=== PATIENT | female | born 1945 | race Caucasian/White ===

== ENCOUNTER 2018-08-05 06:39 | Inpatient (IN) | payer OTHER ==
[2018-08-05] MEDS: CEFAZOLIN 2 GM/50 ML (PMX) 50 ML (FOR WT < 120 KG) IVPB ×2 (07:00→13:35)
[2018-08-05] MEDS ORDERED: ACETAMINOPHEN 500 MG TAB PO (07:00)
[2018-08-05] MEDS: DEXAMETHASONE 4 MG/ML 1 ML INJ IV (09:05)
[2018-08-05] MEDS: LACTATED RINGER'S 1,000 ML IV ×3 (09:05→20:53)
[2018-08-05 09:19] LABS: ADD MAN DIFF? NO
[2018-08-05 09:20] LABS: BASOPHIL # 0.1 10^3/ul (0.0-0.1); BASOPHILS % 0.7 % (0.0-2.0); EOSINOPHILS # 0.1 10^3/ul (0.0-0.5); HEMOGLOBIN 12.8 g/dl (12.0-16.0); LYMPHOCYTES # 2.9 10^3/ul (0.8-2.9); LYMPHOCYTES % 41.5 % (15.0-51.0); MEAN CORPUSCULAR VOLUME 84.4 fl (82.0-101.0); MEAN PLATELET VOLUME 10.7 fl (7.4-10.4); MONOCYTE # 0.6 10^3/ul (0.3-0.9); MONOCYTES % 8.1 % (0.0-11.0); NEUTROPHIL # 3.4 10^3/ul (1.6-7.5); NEUTROPHILS % 47.6 % (39.0-77.0); PLATELET COUNT 225 10^3/UL (140-415); RED BLOOD COUNT 4.74 10^6/ul (4.20-5.40); RED CELL DISTRIBUTION WIDTH 13.3 % (11.5-14.5)
[2018-08-05] MEDS ORDERED: ACETAMINOPHEN 1000MG/100ML IV 100 ML IVPB (09:30)
[2018-08-05] MEDS ORDERED: TRANEXAMIC ACID 1 GM/100 ML (PMX) (09:30)
[2018-08-05] MEDS ORDERED: GLYCOPYRROLATE 0.4 MG INJ (09:31)
[2018-08-05] MEDS ORDERED: ROCURONIUM 50 MG INJ (09:31)
[2018-08-05] MEDS ORDERED: CEFAZOLIN 1 GM INJ (09:32)
[2018-08-05] MEDS ORDERED: ONDANSETRON 4 MG INJ (09:32)
[2018-08-05] MEDS ORDERED: NEOSTIGMINE 3 MG/3 ML SYRINGE (09:32)
[2018-08-05] MEDS ORDERED: DEXAMETHASONE 4 MG/ML 5 ML INJ (09:32)
[2018-08-05] MEDS ORDERED: FENTAnyl 50 MCG/ML VIAL (09:32)
[2018-08-05] MEDS ORDERED: PROPOFOL 20 ML (09:32)
[2018-08-05] MEDS ORDERED: MIDAZOLAM 1 MG/ML 2 ML INJ (09:32)
[2018-08-05] MEDS ORDERED: morphine SULFATE/PF (10 MG/10 ML) INJ (09:34)
[2018-08-05 09:47] LABS: INR 0.94; PROTIME 12.7 Sec (11.9-14.9)
[2018-08-05 09:49] LABS: ALANINE AMINOTRANSFERASE 28 IU/L (13-69); ALBUMIN 4.1 g/dl (3.3-4.9); ALBUMIN/GLOBULIN RATIO 1.32; ALKALINE PHOSPHATASE 158 IU/L (42-121); ANION GAP 10 (5-13); ASPARTATE AMINO TRANSFERASE 33 IU/L (15-46); BILIRUBIN,INDIRECT 0.5 mg/dl (0-1.1); BILIRUBIN,TOTAL 0.5 mg/dl (0.2-1.3); BLOOD UREA NITROGEN 15 mg/dl (7-20); CALCIUM 9.4 mg/dl (8.4-10.2); CARBON DIOXIDE 31 mmol/L (21-31); CHLORIDE 105 mmol/L (97-110); CREATININE 0.75 mg/dl (0.44-1.00); GLUCOSE 106 mg/dl (70-220); POTASSIUM 3.9 mmol/L (3.5-5.1); TOTAL PROTEIN 7.2 g/dl (6.1-8.1)
[2018-08-05] MEDS ORDERED: ALBUTEROL 0.083% (NEB) 2.5 MG/3 ML AMP HHN (10:00)
[2018-08-05] MEDS ORDERED: EPHEDrine 25 MG/5 ML SYG IV (10:00)
[2018-08-05] MEDS ORDERED: FENTAnyl 50 MCG/ML VIAL IV ×3 (10:00)
[2018-08-05] MEDS ORDERED: LABETALOL HCL 20MG INJ IV (10:00)
[2018-08-05] MEDS ORDERED: NALBUPHINE HCL (10 MG/1 ML) INJ IV (10:00)
[2018-08-05] MEDS ORDERED: ONDANSETRON 4 MG INJ IV ×2 (10:00)
[2018-08-05] MEDS ORDERED: IPRATROPIUM (NEB) 0.5 MG/2.5 ML AMP HHN (10:00)
[2018-08-05] MEDS ORDERED: HYDROmorphONE 0.5 MG/0.5 ML SYG IV ×2 (10:00)
[2018-08-05] MEDS ORDERED: DIPHENHYDRAMINE 50 MG INJ IV ×2 (10:00)
[2018-08-05] MEDS ORDERED: hydrALAzine 20 MG INJ IV ×2 (10:00→14:30)
[2018-08-05] MEDS ORDERED: MIDAZOLAM 1 MG/ML 2 ML INJ IV (10:00)
[2018-08-05] MEDS ORDERED: TRIMETHOBENZAMIDE 100 MG/ML VIAL IM (10:00)
[2018-08-05] MEDS ORDERED: HYDROmorphONE 1 MG/5 ML IV SYRINGE IV ×3 (10:00)
[2018-08-05] MEDS ORDERED: ZOLPIDEM 5 MG TAB PO (10:00)
[2018-08-05] MEDS ORDERED: MEPERIDINE 25 MG INJ IV (10:00)
[2018-08-05] MEDS ORDERED: NALOXONE (0.4 MG/ML) INJ IV ×2 (10:00→12:00)
[2018-08-05 10:01] LABS: SODIUM 146 mmol/L (135-144)
[2018-08-05] MEDS: TRANEXAMIC ACID 1GM/100ML(PMX) 100 ML AT INCISION X1 IVPB (10:07)
[2018-08-05] MEDS: POLYMYXIN B 500000 UNIT INJ (10:24)
[2018-08-05] MEDS: BACITRACIN 50000 UNITS INJ (10:24)
[2018-08-05 10:32] LABS: PARTIAL THROMBOPLASTIN TIME 38.3 Sec (23.0-35.0)
[2018-08-05] MEDS: TRANEXAMIC ACID 1GM/100ML(PMX) 100 ML AT CLOSURE X1 IVPB (11:39)
[2018-08-05] MEDS ORDERED: MAGNESIUM HYDROXIDE 30ML CUP PO (12:00)
[2018-08-05] MEDS ORDERED: NACL 0.9% 3 ML SYG IV (12:00)
[2018-08-05] MEDS ORDERED: ROPIVACAINE 0.5 % 30 ML VIAL (12:05)
[2018-08-05] MEDS ORDERED: SUGAMMADEX SODIUM 200 MG/2 ML VIAL IV (12:23)
[2018-08-05] MEDS: GABAPENTIN 100 MG CAP PO ×2 (13:00→20:09)
[2018-08-05] MEDS: CEFAZOLIN 2 GM/50 ML (PMX) 50 ML IVPB (13:30)
[2018-08-05 16:23] LABS: ADD UMIC NO; UR ASCORBIC ACID NEGATIVE (NEGATIVE); UR BILIRUBIN (Dip) NEGATIVE (NEGATIVE); UR BLOOD (Dip) NEGATIVE (NEGATIVE); UR CLARITY CLEAR (CLEAR); UR COLOR STRAW (YELLOW); UR GLUCOSE (Dip) NEGATIVE (NEGATIVE); UR KETONES (Dip) NEGATIVE (NEGATIVE); UR LEUKOCYTE ESTERASE (Dip) NEGATIVE Leu/ul (NEGATIVE); UR NITRITE (Dip) NEGATIVE (NEGATIVE); UR SPECIFIC GRAVITY (Dip) 1.011 (1.003-1.030); UR TOTAL PROTEIN (Dip) NEGATIVE (NEGATIVE); UR UROBILINOGEN (Dip) NEGATIVE (NEGATIVE)
[2018-08-06] MEDS: CEFAZOLIN 2 GM/50 ML (PMX) 50 ML IVPB ×2 (02:37→10:46)
[2018-08-06 05:21] LABS: ADD MAN DIFF? NO
[2018-08-06 05:31] LABS: WHITE BLOOD COUNT 11.8 10^3/ul (4.8-10.8)
[2018-08-06 05:31] LABS: BASOPHILS % 0.1 % (0.0-2.0); HEMATOCRIT 30.7 % (37.0-47.0); LYMPHOCYTES # 1.2 10^3/ul (0.8-2.9); LYMPHOCYTES % 9.8 % (15.0-51.0); MEAN CORPUSCULAR HEMOGLOBIN 26.5 pg (29.0-33.0); MEAN CORPUSCULAR HGB CONC 32.6 g/dl (32.0-37.0); MEAN CORPUSCULAR VOLUME 81.4 fl (82.0-101.0); NEUTROPHIL # 9.7 10^3/ul (1.6-7.5); NEUTROPHILS % 81.7 % (39.0-77.0); PLATELET COUNT 208 10^3/UL (140-415); RED BLOOD COUNT 3.77 10^6/ul (4.20-5.40); RED CELL DISTRIBUTION WIDTH 13.4 % (11.5-14.5)
[2018-08-06 05:51] LABS: CHOLESTEROL 120 mg/dl (100-200)
[2018-08-06 05:51] LABS: CHOL/HDL RATIO 2.8 RATIO; HDL CHOLESTEROL 42 mg/dl (33-92); LDL CHOLESTEROL,CALCULATED 61 mg/dl; TRIGLYCERIDES 83 mg/dl (0-149)
[2018-08-06 06:24] LABS: ANION GAP 7 (5-13); BLOOD UREA NITROGEN 15 mg/dl (7-20); CALCIUM 8.5 mg/dl (8.4-10.2); CARBON DIOXIDE 27 mmol/L (21-31); CHLORIDE 106 mmol/L (97-110); CREATININE 0.63 mg/dl (0.44-1.00); GLUCOSE 141 mg/dl (70-220); SODIUM 140 mmol/L (135-144)
[2018-08-06 06:27] LABS: POTASSIUM 3.9 mmol/L (3.5-5.1)
[2018-08-06 06:50] LABS: HEMOGLOBIN A1C 5.5 % (0-5.9)
[2018-08-06] MEDS: LACTATED RINGER'S 1,000 ML IV ×2 (07:00→12:49)
[2018-08-06] MEDS: GABAPENTIN 100 MG CAP PO ×3 (09:06→20:22)
[2018-08-06] MEDS: CELECOXIB 100 MG CAP PO ×2 (09:06→20:22)
[2018-08-06] MEDS: ASPIRIN (EC) 81 MG TAB PO ×2 (09:07→20:22)
[2018-08-06] MEDS: DOCUSATE SODIUM 100 MG CAP PO ×2 (09:07→20:22)
[2018-08-06] MEDS: KETOROLAC 15 MG INJ IV ×2 (11:40→20:28)
[2018-08-06] MEDS ORDERED: ONDANSETRON 4 MG INJ IV (12:00)
[2018-08-07] MEDS: oxyCODONE 5 MG TAB PO ×3 (00:50→13:53)
[2018-08-07] MEDS: LACTATED RINGER'S 1,000 ML IV ×2 (01:19→07:00)
[2018-08-07 04:50] LABS: ADD MAN DIFF? NO
[2018-08-07 05:00] LABS: BASOPHILS % 0.2 % (0.0-2.0); EOSINOPHILS # 0.1 10^3/ul (0.0-0.5); EOSINOPHILS % 0.7 % (0.0-7.0); HEMATOCRIT 27.8 % (37.0-47.0); HEMOGLOBIN 8.9 g/dl (12.0-16.0); LYMPHOCYTES # 3.7 10^3/ul (0.8-2.9); LYMPHOCYTES % 40.7 % (15.0-51.0); MEAN CORPUSCULAR HEMOGLOBIN 26.6 pg (29.0-33.0); MEAN CORPUSCULAR VOLUME 83.2 fl (82.0-101.0); MEAN PLATELET VOLUME 10.9 fl (7.4-10.4); MONOCYTE # 0.9 10^3/ul (0.3-0.9); MONOCYTES % 9.8 % (0.0-11.0); NEUTROPHIL # 4.4 10^3/ul (1.6-7.5); NEUTROPHILS % 48.4 % (39.0-77.0); PLATELET COUNT 175 10^3/UL (140-415); RED BLOOD COUNT 3.34 10^6/ul (4.20-5.40); RED CELL DISTRIBUTION WIDTH 13.6 % (11.5-14.5)
[2018-08-07 05:00] LABS: WHITE BLOOD COUNT 9.1 10^3/ul (4.8-10.8)
[2018-08-07 05:39] LABS: ANION GAP 6 (5-13); BLOOD UREA NITROGEN 19 mg/dl (7-20); CALCIUM 8.6 mg/dl (8.4-10.2); CARBON DIOXIDE 31 mmol/L (21-31); CHLORIDE 106 mmol/L (97-110); CREATININE 0.77 mg/dl (0.44-1.00); GLUCOSE 120 mg/dl (70-220); POTASSIUM 3.9 mmol/L (3.5-5.1); SODIUM 143 mmol/L (135-144)
[2018-08-07] MEDS: PANTOPRAZOLE (EC) 40 MG TAB PO (06:15)
[2018-08-07] MEDS: KETOROLAC 15 MG INJ IV (06:19)
[2018-08-07] MEDS: CELECOXIB 100 MG CAP PO (08:42)
[2018-08-07] MEDS: GABAPENTIN 100 MG CAP PO ×2 (08:42→13:53)
[2018-08-07] MEDS: DOCUSATE SODIUM 100 MG CAP PO (08:42)
[2018-08-07] MEDS: ASPIRIN (EC) 81 MG TAB PO (08:42)
== END 2018-08-07 16:20 | disposition home health service (06) | DRG 468 ==
LOC: REC 06:39 → MS1 14:26
PROC: 0SPC0JZ Removal of Synthetic Substitute from Right Knee Joint, Open Approach (ICD-10-PCS; principal; 2018-08-05 09:31)
PROC: 0SRC0J9 Replacement of Right Knee Joint with Synthetic Substitute, Cemented, Open Approach (ICD-10-PCS; 2018-08-05 09:31)
DX: T84.032A Mechanical loosening of internal right knee prosthetic joint, initial encounter (principal); E78.5 Hyperlipidemia, unspecified; E03.9 Hypothyroidism, unspecified; E66.9 Obesity, unspecified; I10 Essential (primary) hypertension; K21.9 Gastro-esophageal reflux disease without esophagitis; M25.461 Effusion, right knee; Y83.8 Other surgical procedures as the cause of abnormal reaction of the patient, or of later complication, without mention of misadventure at the time of the procedure; Z68.36 Body mass index [BMI] 36.0-36.9, adult
CPT/HCPCS: 73560; 80048; 80053; 80061; 81003; 83036; 85025; 85610; 85730; 86850; 86900; 86901; 86920; 87070; 87075; 87081; 88300; 97116; 97161; 97167; 97530